=== PATIENT | male | born 1955 | race Caucasian/White ===

== ENCOUNTER → 2019-11-07 | Outpatient (CLI) | payer BC ==
--- NOTE | 2019-11-07 09:25 | Diagnostic Imaging Report ---
EXAM: Renal Ultrasound INDICATION: Microscopic hematuria COMPARISON: None TECHNIQUE: Transverse and longitudinal images of the kidneys and bladder were obtained. FINDINGS: Right Kidney: Length: 13.0 cm Appearance: Normal echogenicity. Collecting system: No hydronephrosis Stones: None Cyst/Mass: None Left Kidney: Length: 13.3 cm Appearance: Normal echogenicity. Collecting system: No hydronephrosis Stones: None Cyst/Mass: Lower pole exophytic 2.7 x 2.6 x 2.5 cm anechoic simple cyst. Mid pole anechoic 1.2 x 0.8 x 1.1 cm simple cyst. Bladder: No mass or calculi. Bilateral ureteral jets visualized. Prevoid volume estimate of 146 cc. The prostate measures 2.9 x 3.3 x 4.4 cm with volume estimate of 22 cc. IMPRESSION: No hydronephrosis or renal calculi. Simple cysts of the left kidney as above. Signed by: Aditi Gordon MD on 11/07/2019 9:22 AM
--- NOTE | 2019-11-07 09:27 | Diagnostic Imaging Report ---
Exam: KUB - 2 views Indication: Hematuria Comparison: Renal ultrasound of earlier the same day Findings: No radiographically apparent renal calculi. Nonobstructive bowel gas pattern. No free air. Phleboliths in the pelvis. No acute osseous injury. Impression: No radiographically apparent renal calculi. Signed by: Aditi Gordon MD on 11/07/2019 9:24 AM
== END ==
LOC: US 07:35
PROVIDERS: ATTEND Urology
DX: R31.29 Other microscopic hematuria (principal)
CPT/HCPCS: 74018; 76770